=== PATIENT | female | born 1975 | race Caucasian/White ===

== ENCOUNTER 2016-09-13 02:48 | Emergency (ER) | payer OTHER ==
[2016-09-13 02:55] VITALS: BP 145/93
== END 2016-09-13 03:04 | disposition left against medical advice (07) ==
LOC: ED 02:48
DX: Z20.3 Contact with and (suspected) exposure to rabies (principal); Z53.21 Procedure and treatment not carried out due to patient leaving prior to being seen by health care provider

== ENCOUNTER 2017-08-13 17:58 | Emergency (ER) | payer OTHER ==
[2017-08-13 18:21] VITALS: BP 120/74
[2017-08-13] MEDS ORDERED: Cephalexin CAP* 500 MG PO ONE (19:33)
--- NOTE | 2017-08-13 19:36 | UC ---
Hand/Wrist HPI - HPI Summary HPI Summary: right third finger hit on a glass cabinet this morning now has mid finger pain and swelling - History Of Current Complaint Chief Complaint: UCLaceration Stated Complaint: HAND LAC Time Seen by Provider: 08/13/17 18:58 Hx Obtained From: Patient Hx Last Menstrual Period: 08/03/17 ?: No Onset/Duration: Sudden Onset, Lasting Hours Severity Initially: Moderate Severity Currently: Moderate Pain Intensity: 4 Character Of Pain: Aching, Throbbing Aggravating Factor(s): Movement Alleviating Factor(s): Nothing Associated Signs And Symptoms: Positive: Swelling, Redness Related History: Dominant Hand Right - Allergies/Home Medications Allergies/Adverse Reactions: Allergies Allergy/AdvReac Type Severity Reaction Status Date / Time erythromycin Allergy Intermediate Vomiting Uncoded 08/13/17 18:20 PMH/Surg Hx/FS Hx/Imm Hx Previously Healthy: Yes - Surgical History Surgical History: None - Family History Known Family History: Positive: None - Social History Occupation: Employed Full-time Lives: With Family Alcohol Use: None Substance Use Type: None Smoking Status (MU): Never Smoked Tobacco - Immunization History Most Recent Influenza Vaccination: unknown Most Recent Tetanus Shot: "couple years ago" Review of Systems Constitutional: Negative Skin: Negative - pw right 3rd finger, Other Eyes: Negative ENT: Negative Respiratory: Negative Cardiovascular: Negative Gastrointestinal: Negative Genitourinary: Negative Motor: Negative Neurovascular: Negative Musculoskeletal: Negative Neurological: Negative Psychological: Negative Is Patient Immunocompromised?: No All Other Systems Reviewed And Are Negative: Yes Physical Exam Triage Information Reviewed: Yes Appearance: Well-Appearing, No Pain Distress, Well-Nourished Vital Signs: Initial Vital Signs Temp 97.4 F 08/13/17 18:15 Pulse 83 08/13/17 18:15 Resp 14 08/13/17 18:15 BP 120/74 08/13/17 18:15 Pulse Ox 100 08/13/17 18:15 Vital Signs Reviewed: Yes Eye Exam: Normal Eyes: Positive: Conjunctiva Clear ENT Exam: Normal ENT: Positive: Normal ENT inspection, Hearing grossly normal, Pharynx normal. Negative: Nasal congestion, Nasal drainage, Tonsillar swelling, Tonsillar exudate, Trismus, Muffled voice, Hoarse voice Dental Exam: Normal Neck exam: Normal Neck: Positive: Supple, Nontender, No Lymphadenopathy Respiratory Exam: Normal Respiratory: Positive: Chest non-tender, No respiratory distress, No accessory muscle use Cardiovascular Exam: Normal Cardiovascular: Positive: RRR, Pulses Normal, Brisk Capillary Refill Musculoskeletal Exam: Normal Musculoskeletal: Positive: Strength Intact, ROM Limited @ - right, Edema @ Neurological Exam: Normal Neurological: Positive: Alert, Muscle Tone Normal Psychological Exam: Normal Skin Exam: Normal Diagnostics - Radiology No standard instances Xray Interpretation: Positive (See Comments) - FB right 3rd finger Radiology Interpretation Completed By: ED Physician, Radiologist Hand/Wrist Course/Dx - Course Course Of Treatment: Warm soaks, Keflex, tetanus is up to date, splint for finger - Differential Dx/Diagnosis Provider Diagnoses: FB right 3rd finger Discharge - Discharge Plan Condition: Stable Disposition: HOME Prescriptions: Cephalexin CAP* [Keflex CAP*] 500 mg PO QID #19 cap Patient Education Materials: Ibuprofen (By mouth), Soft Tissue Foreign Body (ED ), Warm Compress or Soak (ED) Referrals: Alexa Zamorano MD [Primary Care Provider] - Georgia Henning MD [Medical Doctor] - 2 Days
--- NOTE | 2017-08-13 20:15 | RAD ---
Indication: Right middle finger injury. Foreign body. 4 views of the right middle finger demonstrates radiopaque foreign body in the volar aspect of the soft tissues superficial to the middle phalanx. IMPRESSION: There are 2 foreign bodies noted in the area of abnormality.
== END 2017-08-13 19:45 | disposition home or self-care (01) ==
LOC: UCEAST 17:58
DX: S61.222A Laceration with foreign body of right middle finger without damage to nail, initial encounter (principal); Z88.1 Allergy status to other antibiotic agents; Y92.9 Unspecified place or not applicable; W25.XXXA Contact with sharp glass, initial encounter
CPT/HCPCS: 73140; 99213; A9270-GY; G0463

== ENCOUNTER 2018-12-08 14:33 | Emergency (ER) | payer OTHER ==
[2018-12-08 14:49] VITALS: BP 111/68
--- NOTE | 2018-12-08 15:14 | UC ---
Skin Complaint HPI - HPI Summary HPI Summary: 43 yo female with yellow skin x 1 week no wt loss no abd pain no f/v no n/v/d no dark urine on a diet high in veggies fatigue x 1 month - History of Current Complaint Chief Complaint: UCSkin Time Seen by Provider: 12/08/18 14:47 Stated Complaint: SKIN TURNING YELLOW Hx Obtained From: Patient Hx Last Menstrual Period: 11/29/18 Onset/Duration: Gradual Onset, Lasting Days Timing: Constant Onset Severity: Mild Current Severity: Mild Pain Intensity: 0 Pain Scale Used: 0-10 Numeric Location: Diffuse Aggravating Factor(s): Nothing Alleviating Factor(s): Nothing Associated Signs & Symptoms: Positive: Negative - Allergy/Home Medications Allergies/Adverse Reactions: Allergies Allergy/AdvReac Type Severity Reaction Status Date / Time erythromycin Allergy Intermediate Vomiting Uncoded 08/13/17 18:20 Home Medications: Home Medications NK [No Home Medications Reported] 12/08/18 [History Confirmed 12/08/18] PMH/Surg Hx/FS Hx/Imm Hx Previously Healthy: Yes - Surgical History Surgical History: None - Family History Known Family History: Positive: Hypertension, Diabetes - Social History Alcohol Use: None Substance Use Type: None Smoking Status (MU): Never Smoked Tobacco - Immunization History Most Recent Influenza Vaccination: unknown Most Recent Tetanus Shot: "couple years ago" Review of Systems All Other Systems Reviewed And Are Negative: Yes Constitutional: Positive: Fatigue Skin: Positive: Other - yellow skin Eyes: Positive: Negative ENT: Positive: Negative Respiratory: Positive: Negative Cardiovascular: Positive: Negative Gastrointestinal: Positive: Negative Genitourinary: Positive: Negative Motor: Positive: Negative Neurovascular: Positive: Negative Musculoskeletal: Positive: Negative Neurological: Positive: Negative Psychological: Positive: Negative Physical Exam Triage Information Reviewed: Yes Appearance: Well-Appearing, No Pain Distress, Well-Nourished Vital Signs: Initial Vital Signs Temp 99.6 F 12/08/18 14:44 Pulse 89 12/08/18 14:44 Resp 12 12/08/18 14:44 BP 111/68 12/08/18 14:44 Pulse Ox 100 12/08/18 14:44 Vital Signs Reviewed: Yes Eyes: Positive: Conjunctiva Clear, Other: - ANICTERIC SCLERA ENT: Positive: Hearing grossly normal. Negative: Nasal congestion, Nasal drainage, Tonsillar swelling, Tonsillar exudate, Dental tenderness, Sinus tenderness, Uvula midline Neck: Positive: Supple, Nontender, No Lymphadenopathy Respiratory: Positive: Lungs clear, Normal breath sounds, No respiratory distress, No accessory muscle use Cardiovascular: Positive: RRR, No Murmur Abdomen Description: Positive: Nontender, No Organomegaly. Negative: CVA Tenderness (R), CVA Tenderness (L), Distended, Hepatomegaly, Splenomegaly Bowel Sounds: Positive: Present Musculoskeletal: Positive: ROM Intact, No Edema Neurological: Positive: Alert, Muscle Tone Normal Psychological Exam: Normal Skin Exam: Other - yellowish hue to Diagnostics - Laboratory Lab Results: urine (-) for bili Course/Dx - Diagnoses Provider Diagnosis: Carotene pigmentation of skin Discharge - Sign-Out/Discharge Documenting (check all that apply): Patient Departure All imaging exams completed and their final reports reviewed: No Studies - Discharge Plan Condition: Stable Disposition: HOME Referrals: Alexa Zamorano MD [Primary Care Provider] - 5 Days Additional Instructions: I suspect your skin coloration is due to your diet carrots/sweet potatoes and squash have a lot of carotene blood work is pending - Billing Disposition and Condition Condition: STABLE Disposition: Home
[2018-12-08 18:59] LABS: ABS Eosinophils 0.1 10^3/ul (0-0.6); ABS Lymphocytes 1.8 10^3/ul (1.0-4.8); ABS Monocytes 0.5 10^3/ul (0-0.8); Eosinophil % 0.7 %; Hematocrit 38 % (35-47); Hemoglobin 12.5 g/dL (12.0-16.0); Lymphocyte % 24.5 %; Mean Corpuscular HGB Conc 33 g/dL (31-36); Mean Corpuscular Hemoglobin 29 pg (27-31); Mean Corpuscular Volume 87 fL (80-97); Mean Platelet Volume 11.2 fL (7.4-10.4); Platelet Count 194 10^3/uL (150-450); Red Blood Count 4.39 10^6 /uL (3.70-4.87); Red Cell Distribution Width 15 % (10.5-15); White Blood Count 7.3 10^3/uL (3.5-10.8)
[2018-12-08 19:03] LABS: Albumin 4.2 g/dL (3.2-5.2); Calcium 9.4 mg/dL (8.6-10.3); Potassium 4.2 mmol/L (3.5-5.0)
[2018-12-08 19:09] LABS: Albumin/Globulin Ratio 1.8 (1-3); BUN/Creatinine Ratio 26.4 (8-20); EGFR African American 106.5 (>60); Globulin 2.4 g/dL (2-4); Total Protein 6.6 g/dL (6.4-8.9)
--- NOTE | 2018-12-09 10:28 | UC ---
- Progress Note Progress Note: Patient seen for possible liver disease, elevated bili due to yellow skin. lab work done, liver function, bili WNLs, results to be called to patient, follow up with primary physician for further concerns. -antonia dennis PAC Course/Dx - Diagnoses Provider Diagnoses: Carotene pigmentation of skin Discharge - Sign-Out/Discharge Documenting (check all that apply): Patient Departure All imaging exams completed and their final reports reviewed: No Studies - Discharge Plan Condition: Stable Disposition: HOME Referrals: Alexa Zamorano MD [Primary Care Provider] - 5 Days Additional Instructions: I suspect your skin coloration is due to your diet carrots/sweet potatoes and squash have a lot of carotene blood work is pending - Billing Disposition and Condition Condition: STABLE Disposition: Home
== END 2018-12-08 15:53 | disposition home or self-care (01) ==
LOC: UCEAST 14:33
DX: E67.1 Hypercarotenemia (principal); Z88.1 Allergy status to other antibiotic agents
CPT/HCPCS: 36415; 80053; 81003; 85025; 87086; 99211; G0463

== ENCOUNTER 2019-05-05 08:57 | Emergency (ER) | payer OTHER ==
--- NOTE | 2019-05-05 09:13 | UC ---
Back Pain HPI - HPI Summary HPI Summary: CHIEF COMPLAINT and HPI: This is a 44-year-old female who states that approximately 1 hour prior to coming to the urgent care center. She was bending over and reaching and experienced intense, sharp, left perispinal pain radiating around to her left anterior thorax. She also complains of shortness of breath and dizziness. All of these conditions are improved when she is lying supine. Moving makes the pain worse as does sitting up. She denies chest pain, , pain radiating to her jaw or down her left arm or nausea or vomiting. she states that she does feel slightly short of breath and lightheaded when she stands. She is not on control pills and has not had any recent travel. She has no history of pulmonary embolus. The pain is described as 8/10 and it is significantly worse with movement. Description of Pain: Location:pain is located in the area of T10, T12 on the left posterior thorax. There is also discomfort over the T10, T12 area on the left anterior lateral thorax. Radiation:it is unclear if the pain is radiating or if it is 2 separate areas of discomfort. Type:the pain is aching and is very sharp with movement. Intensity:8/10 with movement. Variation:decreased when supine. VITAL SIGNS & SaO2 REVIEWED. Within normal limits unless noted here.blood pressure noted at 121/66. Slight systolic elevation secondary to anxiety. Pulse is 100. NURSES NOTE REVIEWED. - History of Current Complaint Chief Complaint: UCBackPain Stated Complaint: BACK PAIN DIZZINESS Time Seen by Provider: 05/05/19 09:12 Hx Obtained From: Patient Hx Last Menstrual Period: about 3 weeks ago Pain Intensity: 8 - Allergies/Home Medications Allergies/Adverse Reactions: Allergies Allergy/AdvReac Type Severity Reaction Status Date / Time erythromycin Allergy Intermediate Vomiting Uncoded 05/05/19 09:04 PMH/Surg Hx/FS Hx/Imm Hx - Additional Past Medical History Additional PMH: PAST MEDICAL HISTORY- CHRONIC and RECURRENT HEALTH PROBLEM LIST REVIEWED. Information relevant to present complaint: hx of fatigue; history of anxiety that has become worse recently. VISIT HISTORY REVIEWED: non contributory. MEDICATIONS & ALLERGIES REVIEWED. HYPERTENSION STATUS: no meds or hx. FAMILY HISTORY: Positive for: hypertension, cardiovascular disease diabetes, cancer. SOCIAL HISTORY: nonsmoker, lives with her family. 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 - Surgical History Surgical History: None - Family History Known Family History: Positive: None, Hypertension, Diabetes - Social History Alcohol Use: None Substance Use Type: None Smoking Status (MU): Never Smoked Tobacco - Immunization History Most Recent Influenza Vaccination: unknown Most Recent Tetanus Shot: "couple years ago" Review of Systems All Other Systems Reviewed And Are Negative: Yes Constitutional: Positive: Negative Respiratory: Positive: Shortness Of Breath. Negative: Cough - related to back discomfort. Cardiovascular: Positive: Negative Gastrointestinal: Positive: Negative Is Patient Immunocompromised?: No Physical Exam - Summary Physical Exam Summary: Appearance: The patient is well-appearing, and is well-nourished. patient states that she is anxious and that her back is uncomfortable and much worse with movement. Eyes: Conjunctiva are clear. Pupils are equal and reactive to light and accommodation. Extra ocular muscle movement is intact. ENT: The hearing is grossly normal, the pharynx is normal, and the TMs are normal. There is no muffled or hoarse voice. No stridor. Neck: The neck is supple and there is no lymphadenopathy. Respiratory: The chest is non-tender to palpation and without crepitus. The lungs are clear, there are normal breath sounds, and there is no respiratory distress. No wheezes, rales or rhonchi. Cardiovascular: Heart sounds reveal a regular rate and rhythm. There are no clicks, rubs or murmurs. There are no carotid bruits or thrills. Circulation is grossly intact. Abdomen: The abdomen is soft and nontender. There is no organomegaly. Bowel sounds are present and within normal limits. No point tenderness at McBurneys point. No CVA tenderness. Musculoskeletal: Strength is intact. The patient moves all extremities. E xamination of the left posterior thorax shows mild discomfort with palpation in the area of T10-T12. The patient feels somewhat improved if pressure is put on this area as well as the left anterior thorax. The T10, T12, as she is inhaling. Neurological: The patient is alert. Motor and sensory are examination grossly intact. Speech is normal. Psychological: The patient displays age appropriate behavior, and is conversant. GCS=15. Skin: Negative for rashes. x ray: REPORT: Negative for pneumothorax. Clear lungs and pleural spaces. Bilateral nipple shadows noted. The heart, pulmonary vasculature, and mediastinal contours are unremarkable. No thoracic fractures evident. IMPRESSION: #. Negative for pneumothorax. #. No evidence for acute intrathoracic disease. I discussed my diagnosis of thoracic muscle injury and instructed the patient to return to the emergency Department if she should have any increased or different pain or shortness of breath. At 10:35 AM the patient is smiling, walking around and not short of breath. It does hurt her to arch the back. Repeat lung exam is within normal limits. My diagnosis is thoracic muscle injury on the left side. Triage Information Reviewed: Yes Vital Signs: Initial Vital Signs Temp 98.5 F 05/05/19 09:04 Pulse 90 05/05/19 09:04 Resp 16 05/05/19 09:04 BP 121/66 05/05/19 09:04 Pulse Ox 100 05/05/19 09:04 Back Pain Course/Dx - Course Course Of Treatment: This is a 44-year-old female who states that approximately 1 hour prior to coming to the urgent care center. She was bending over and reaching and experienced intense, sharp, left perispinal pain radiating around to her left anterior thorax. . Patient denies radiation of pain consistent with sciatica or other nerve impingement syndrome. She also complains of shortness of breath and dizziness. All of these conditions are improved when she is lying supine. Moving makes the pain worse as does sitting up. She denies chest pain, , pain radiating to her jaw or down her left arm or nausea or vomiting. she states that she does feel slightly short of breath and lightheaded when she stands. She is not on control pills and has not had any recent travel. She has no history of pulmonary embolus. The pain is described as 8/10 and it is significantly worse with movement. EKG shows a sinus rhythm at a rate of 77. There is no ischemia. CXR is normal. UA shows WBC; no symptoms. Will be sent for culture but I will not treat. At 10:00 patient is walking around, comfortable, no shortness of breath. - Differential Dx/Diagnosis Differential Diagnosis/HQI/PQRI: Fracture, Herniated Disc, Renal Colic, Strain, Sprain, Other - pneumothorax; pulmonary embolus Provider Diagnosis: Back ache Discharge ED - Sign-Out/Discharge Documenting (check all that apply): Patient Departure All imaging exams completed and their final reports reviewed: Yes - Discharge Plan Condition: Stable Disposition: HOME Patient Education Materials: Back Pain (ED) Referrals: Alexa Zamorano MD [Primary Care Provider] - Additional Instructions: WE DISCUSSED: PLEASE SEEK CARE AT THE EMERGENCY DEPARTMENT IF SYMPTOMS WORSEN OR IF NEW SYMPTOMS DEVELOP. FOLLOW UP WITH YOUR PRIMARY CARE PHYSICIAN IF CONDITION CONTINUES BEYOND 3 DAYS WITHOUT IMPROVEMENT. YOUR DIAGNOSIS IS:muscle strain of the left side of your back in the thoracic area. YOUR PRESCRIPTION RECOMMENDATION IS:no prescription medications. OTHER INSTRUCTIONS:follow-up is planned for anxiety Hypertension Discharge Instructions: Your blood pressure reading today was 121/66 , indicating HYPERTENSION. . This is probably related to her discomfort and anxiety.Follow-up with your primary care provider within 4 weeks for blood pressure check and appropriate recommendations and treatment, as needed. FOR PAIN AND/OR SLEEP: For pain: Ibuprofen (Motrin and other brand names) 400-600mg PLUS acetaminophen (Tylenol and other brand names) 500mg - 1000mg every 8 hours. - Billing Disposition and Condition Condition: STABLE Disposition: Home
[2019-05-05 10:58] VITALS: BP 101/70
== END 2019-05-05 10:55 | disposition home or self-care (01) ==
LOC: UCEAST 08:57
DX: M54.6 Pain in thoracic spine (principal); R42 Dizziness and giddiness; R06.02 Shortness of breath; Z88.1 Allergy status to other antibiotic agents
CPT/HCPCS: 71046; 81003; 87086; 93005; 99212; G0463

== ENCOUNTER 2019-06-04 11:54 | Emergency (ER) | payer OTHER ==
--- OUTSIDE RECORDS SUMMARY | 2019-06-04 12:02 | XMS REPORT | Continuity of Care Document ---
:1975 External Reference #:[id number] Author Name Mercy Louise MD (transmitted by agent of provider Irma Bass) Address [address] [facility] [place], [place] [address] Care Team Providers Name Role Phone Alexa Zamorano MD - Internal Care Team Information Assistant Chief Train Dispatcher [phone] Medicine Problems Active Problems Provider Date Mucous polyp of cervix Alexa Zamorano M.D. Onset: 09/02/2011 Social History Type Date Description Comments Sex Unknown ETOH Use Denies alcohol use Recreational Drug Use Denies Drug Use Tobacco Use Start: Unknown Patient has never smoked Smoking Status Reviewed: 05/24/19 Patient has never smoked Exercise Type/Frequency Exercises regularly Allergies, Adverse Reactions, Alerts Active Allergies Reaction Severity Comments Date Erythromycin Nausea and Vomiting 08/26/2011 Medications Active Medications SIG Qnty Indications Ordering Provider Date Multiple Vitamins 1 po qd Unknown Tablets Ibuprofen as needed Unknown 200mg Capsules Medications Administered in Office Medication SIG Qnty Indications Ordering Provider Date No Injection Vinnie Chaney MD 08/16/2017 Injection Immunizations CPT Code Status Date Vaccine Lot # [id number] Given 07/05/2012 Fluvirin Im [id number] And Older [id number] Vital Signs Date Vital Result Comment 05/24/2019 9:48am Height 65 inches 5'5" Heart Rate 82 /min BP Systolic Sitting 120 mmHg BP Diastolic Sitting 78 mmHg Body Temperature 98.1 F O2 % BldC Oximetry 98 % 12/21/2018 1:49pm Height 65 inches 5'5" Heart Rate 95 /min BP Systolic Sitting 111 mmHg BP Diastolic Sitting 75 mmHg Body Temperature 98.4 F O2 % BldC Oximetry 98 % Results Test Date Facility Test Result H/L Range Note Urine Culture And 05/05/2019 [facility] Urine SEE RESULT 1 , [address] [place] [address] [phone] Poc Urinalysis 05/05/2019 [facility] Poc Glucose, Negative Negative [address] [place] [address] [phone] Poc Bilirubin, Urine Negative Negative Poc Ketone, Urine 3+ Abnormal Negative Poc Specific Glade, Urine 1.015 Normal 1.010-1.030 Poc Blood, Urine Negative Negative Poc pH, Urine 7.0 Normal 5-9 Poc Protein, Urine Negative Negative Poc Urobilinogen, Urine 0.2 Negative Poc Nitrite, Urine Negative Negative Poc Leukocytes, Urine Trace Abnormal Negative Poc Color, Urine Dark yellow Poc Clarity, Urine Slightly Cloudy 3 Laboratory test 05/05/2019 [facility] Point of 69 mg/dL Low 70 -[address] [place] [address] [phone] Comp Metabolic 12/08/2018 [facility] Sodium 137 mmol/L Normal 135-[address] [place] [address] [phone] Potassium 4.2 mmol/L Normal 3.5-5.0 Chloride 105 mmol/L Normal 101-111 Co2 Carbon Dioxide 27 mmol/L Normal 22-32 Anion Gap 5 mmol/L Normal 2-11 Calcium 9.4 mg/dL Normal 8.6-10.3 Albumin 4.2 g/dL Normal 3.2-5.2 Total Bilirubin 1.00 mg/dL Normal 0.2-1.0 Glucose 127 mg/dL High 70-100 Blood Urea Nitrogen 19 mg/dL Normal 6-24 Creatinine 0.72 mg/dL Normal 0.51-0.95 BUN/Creatinine Ratio 26.4 High 8-20 Total Protein 6.6 g/dL Normal 6.4-8.9 Globulin 2.4 g/dL Normal 2-4 Albumin/Globulin Ratio 1.8 Normal 1-3 Alkaline Phosphatase 57 U/L Normal 34-104 Alt 25 U/L Normal 7-52 Ast 22 U/L Normal 13-39 Egfr Non- 88.0 >60 Egfr 106.5 >60 6 CBC Auto 12/08/2018 [facility] White Blood 7.3 10^3/uL Normal 3.5-10.[address] [place] [address] [phone] Red Blood Count 4.39 10^6/uL Normal 3.70-4.87 Hemoglobin 12.5 g/dL Normal 12.0-16.0 Hematocrit 38 % Normal 35-47 Mean Corpuscular Volume 87 fL Normal 80-97 Mean Corpuscular Hemoglobin 29 pg Normal 27-31 Mean Corpuscular HGB Conc 33 g/dL Normal 31-36 Red Cell Distribution Width 15 % Normal 10.5-15 Platelet Count 194 10^3/uL Normal 150-450 Mean Platelet Volume 11.2 fL High 7.4-10.4 Abs Neutrophils 5.0 10^3/uL Normal 1.5-7.7 Abs Lymphocytes 1.8 10^3/uL Normal 1.0-4.8 Abs Monocytes 0.5 10^3/uL Normal 0-0.8 Abs Eosinophils 0.1 10^3/uL Normal 0-0.6 Abs Basophils 0.0 10^3/uL Normal 0-0.2 Abs Nucleated RBC 0.0 10^3/uL Granulocyte % 67.6 % Lymphocyte % 24.5 % Monocyte % 6.7 % Eosinophil % 0.7 % Basophil % 0.5 % Nucleated Red Blood Cells % 0.0 Urine Culture And 12/08/2018 [facility] Urine SEE RESULT [address] [place] [address] [phone] Poc Urinalysis 12/08/2018 [facility] Poc Glucose, Negative Negative [address] [place] [address] [phone] Poc Bilirubin, Urine Negative Negative Poc Ketone, Urine Negative Negative Poc Specific Glade, Urine <= 1.005 Low 1.010-1.030 Poc Blood, Urine Negative Negative Poc pH, Urine 5.5 Normal 5-9 Poc Protein, Urine Negative Negative Poc Urobilinogen, Urine 0.2 Negative Poc Nitrite, Urine Negative Negative Poc Leukocytes, Urine Trace Abnormal Negative Poc Color, Urine Yellow Poc Clarity, Urine Clear 8 1 [id number] 2 SEE RESULT BELOW Name: DEEPA LAFLEUR : [address]: Hubert Fortune MD Acct: [id number] Unit: [id number] AGE: 44 Location: [facility] Re05/05/19 SEX: F Status: DEP ER SPEC: [id number] DESI: 05/05/19 [facility] DR: Hubert Fortune MD REQ: [id number] RECD: 05/05/19 STATUS: JESUS ALBERTO HUIZAR DR: Alexa Zamorano MD _ SOURCE: URINE SPDESC: ORDERED: Urine Culture COMMENTS: [id number] Procedure Result Reported Site Urine Culture Final 05/06/19- 1213 ML No growth of clinically significant organisms * ML - Main Lab . END OF REPORT DEPARTMENT OF PATHOLOGY, [address] [place] [id number] Mahad Nascimento M.D. Director [facility] # [id number] 3 Senior Sharepoint Developer: [id number] Senior Sharepoint Developer: [id number] Because ethnic data is not always readily available, this report includes an eGFR for both -Americans and non- Americans. The National Kidney Disease Education Program (NKDEP) does not endorse the use of the MDRD equation for patients that are not between the ages of 18 and 70, are , have extremes of body size, muscle mass, or nutritional status, or are non- or non-. According to the National Kidney Foundation, irrespective of diagnosis, the stage of the disease is based on the level of kidney function: Stage Description GFR(mL/min/1.73 m(2)) 1 Kidney damage with normal or decreased GFR 90 2 Kidney damage with mild decrease in GFR 60-89 3 Moderate decrease in GFR 30-59 4 Severe decrease in GFR 15-29 5 Kidney failure <15 (or dialysis) 7 SEE RESULT BELOW Name: DEEPA LAFLEUR : [address]: Jorge Schuler MD Acct: [id number] Unit: [id number] AGE: 43 Location: [facility] Re12/08/18 SEX: F Status: DEP ER SPEC: [id number] DESI: 12/08/18-1530 [facility] DR: Jorge Schuler MD REQ: [id number] RECD: 12/08/18 STATUS: COMP [facility] DR: Alexa Zamorano MD _ SOURCE: URINE SPDESC: ORDERED: Urine Culture COMMENTS: [id number] Procedure Result Reported Site Urine Culture Final 12/10/18- 0943 ML No growth of clinically significant organisms * ML - Main Lab . END OF REPORT DEPARTMENT OF PATHOLOGY, [address] [place] [address] Mahad Nascimento M.D. Director [facility] # [id number] Senior Sharepoint Developer: [id number] Procedures Description No Information Available Medical Devices Description No Information Available Encounters Type Date Location Provider Dx Diagnosis Office Visit 12/21/2018 [facility] Internal Mercy Louise MD S99.922A Unspecified injury 2:00p Medicine - Ccmob of left foot, initial encounter R23.8 Other skin changes Assessments Date Code Description Provider 05/24/2019 M54.6 Pain in thoracic spine Mercy Louise MD 05/24/2019 F41.9 Anxiety disorder, unspecified Mercy Louise MD 12/21/2018 S99.922A Unspecified injury of left foot, initial Mercy Louise MD encounter 12/21/2018 R23.8 Other skin changes Mecry Louise MD Plan of Treatment Future Appointment(s):08/23/2019 8:20 am - Mercy Louise MD at [facility] Internal Medicine - [facility]05/24/2019 - Mercy Louise, MDM54.6 Pain in thoracic spineComments :[id number] Anxiety disorder, unspecifiedComments:See a therapist and if symptoms are not controlled in 3 months we can start a medicationFollow up:F/U 3 months Functional Status Description No Information Available Mental Status Description No Information Available Referrals Description No Information Available
[2019-06-04 12:21] VITALS: BP 121/73
--- NOTE | 2019-06-04 14:07 | UC ---
Head Injury HPI - HPI Summary HPI Summary: Patient is a 44yo female presenting with with c/o "feeling wonky" after a metal door swung open at work and hit her in the head. Notes mild headache. Denies LOC and vision changes. Denies muscle weakness. Denies difficulty ambulating. Denies nausea and vomiting. Denies numbness and tingling. Denies neck pain. Patient states she works at [employer] and they sent her here. Denies taking blood thinners. 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 Hx Last Menstrual Period: about 3 weeks ago Severity Currently: Mild Severity Initially: Mild Pain Intensity: 3 Pain Scale Used: 0-10 Numeric - Allergies/Home Medications Allergies/Adverse Reactions: Allergies Allergy/AdvReac Type Severity Reaction Status Date / Time erythromycin Allergy Intermediate Vomiting Uncoded 06/04/19 12:21 PMH/Surg Hx/FS Hx/Imm Hx Previously Healthy: Yes - Surgical History Surgical History: None - Family History Known Family History: Positive: None, Hypertension, Diabetes, Non-Contributory - Social History Occupation: Employed Full-time Lives: With Family Alcohol Use: None Substance Use Type: None Smoking Status (MU): Never Smoked Tobacco - Immunization History Most Recent Influenza Vaccination: unknown Most Recent Tetanus Shot: "couple years ago" Review of Systems All Other Systems Reviewed And Are Negative: Yes Constitutional: Positive: Negative Eyes: Positive: Negative. Negative: Blurred Vision, Diplopia, Photophobia Respiratory: Positive: Negative Cardiovascular: Positive: Negative Gastrointestinal: Positive: Negative. Negative: Vomiting, Nausea Motor: Positive: Negative Neurovascular: Positive: Negative Musculoskeletal: Positive: Negative Neurological: Positive: Headache. Negative: Weakness, Paresthesia, Numbness Psychological: Positive: Negative Physical Exam Triage Information Reviewed: Yes Appearance: Well-Appearing, No Pain Distress, Well-Nourished Vital Signs: Initial Vital Signs Temp 97.8 F 06/04/19 12:17 Pulse 63 06/04/19 12:17 Resp 16 06/04/19 12:17 BP 121/73 06/04/19 12:17 Pulse Ox 100 06/04/19 12:17 Vital Signs Reviewed: Yes Eyes: Positive: Conjunctiva Clear, Other: - PERRLA. EOM intact ENT: Positive: Hearing grossly normal, Pharynx normal, TMs normal - no drainage. Negative: Nasal drainage Neck exam: Normal Neck: Positive: Supple, Nontender, No Lymphadenopathy Respiratory Exam: Normal Respiratory: Positive: Lungs clear, Normal breath sounds, No respiratory distress Cardiovascular Exam: Normal Cardiovascular: Positive: RRR Musculoskeletal Exam: Normal Neurological Exam: Other - cranial nerves II-XII intact. negative romberg. negative finger to nose testing Neurological: Positive: Alert, Muscle Tone Normal Psychological Exam: Normal Psychological: Positive: Age Appropriate Behavior Skin Exam: Normal - no ecchymosis or erythema Head Injury Course/Dx - Course Course Of Treatment: Patient's vital signs and physical exam findings normal. She is alert and oriented x person, place, and time. Use [place] CT head rule to r/o CT. Discussed concussion and educated patient on symptomatic treatment. Educated on signs and symptoms of worsening symptoms of head injury and instructed to go to ED if they worsen. Instructed to follow up with PCP this week for recheck. Patient voiced understanding and agreed with treatment plan. - Differential Dx/Diagnosis Provider Diagnosis: Concussion Discharge ED - Sign-Out/Discharge Documenting (check all that apply): Patient Departure All imaging exams completed and their final reports reviewed: No Studies - Discharge Plan Condition: Stable Disposition: HOME Patient Education Materials: Concussion (ED) Forms: *Work Release Referrals: Mercy Louise MD [Primary Care Provider] - If Needed Additional Instructions: As discussed, you have experienced a minor head injury likely causing a minor concussion. It is important that you rest your brain, which including limiting reading, TV, computers, and other screen time. Avoid strenuous activities, including sports. You should not return to to any physical activity until your symptoms have resolved fully. You may continue to take ibuprofen or tylenol as directed for pain relief. Follow up with your PCP if your symptoms do not begin to resolve within 5-7 days. Go to the emergency department if you experience loss of consciousness, seizure , severe headache, weakness in arms or legs, or any changes in vision. - Billing Disposition and Condition Condition: STABLE Disposition: Home - Attestation Statements Provider Attestation: I was available for consult. This patient was seen by the [facility]. The patient was not presented to, seen by, or examined by me. -Aris
== END 2019-06-04 14:30 | disposition home or self-care (01) ==
LOC: UCEAST 11:54
DX: S06.0X0A Concussion without loss of consciousness, initial encounter (principal); Z88.1 Allergy status to other antibiotic agents; W22.8XXA Striking against or struck by other objects, initial encounter; Y92.9 Unspecified place or not applicable
CPT/HCPCS: 99211; G0463